=== PATIENT | female | born 1985 | race Caucasian/White ===

== ENCOUNTER → 2018-09-25 | Outpatient (CLI) | payer BC, SELFPAY ==
[2018-09-25 10:01] VITALS: BMI 25.0
[2018-09-25 14:16] LABS: Mucous, Urine 0 SEEN /hpf (<or=2+)
[2018-09-25 14:40] LABS: Color, Urine Yellow (Yellow); Glucose, Dipstick Normal (Normal); Ketone-Dipstick Negative (Negative); Leukocyte Esterase-Dipstick 500 /ul (Negative); Nitrite-Dipstick Negative (Negative); Occult Blood-Urine 150 /ul (Negative); Protein-Dipstick 30 mg/dl (Negative); Urine Bilirubin Dipstick Negative (Negative); Urine Clarity Cloudy (Clear); Urine Urobilinogen Normal (Normal); Urine pH 6.5 (5.0 - 8.0)
[2018-09-25 14:46] LABS: Squamous Epithelial Cells - UA 0-5 SEEN /hpf (5-10); White Blood Cells >100 SEEN /hpf (0-5)
[2018-09-25 14:50] LABS: Bacteria 1+ /hpf (None Seen)
[2018-09-25 14:52] LABS: Transitional Epithelial - Ur 0-5 SEEN /hpf (0-5)
[2018-09-25 14:53] LABS: Red Blood Cells-Urine 10-25 SEEN /hpf (0-5)
== END | disposition home or self-care (01) ==
PROVIDERS: Family Provider Family Medicine; PCP Family Medicine; Visit Provider Physician Assistant Medical
DX: R30.0 Dysuria (principal)
CPT/HCPCS: 81001; 87077; 87086; 87088; 87186

== ENCOUNTER → 2019-01-06 | Outpatient (CLI) | payer BC, SELFPAY ==
[2019-01-06 10:40] VITALS: BMI 25.0
[2019-01-06 12:18] LABS: HIV - WCH Non-Reactive (Nonreactive)
[2019-01-07 01:39] LABS: Rapid Plasmin Reagin (RPR) NONREACTIVE (NONREACTIVE)
[2019-01-08 03:06] LABS: HCV Quant. RNA PCR HCV Not Detected IU/mL (.)
[2019-01-10 13:46] LABS: HSV 1 IgG < 0.91 index (0.00-0.90); HSV 2 IgG < 0.91 index (0.00-0.90)
== END | disposition home or self-care (01) ==
LOC: PAVLAB 10:54
PROVIDERS: Family Provider Family Medicine; PCP Family Medicine; Referring Provider Nurse Practitioner Women's Health; Visit Provider Nurse Practitioner Women's Health
DX: Z11.3 Encounter for screening for infections with a predominantly sexual mode of transmission (principal)
CPT/HCPCS: 36415; 86592; 86695; 86696; 86703; 87522

== ENCOUNTER → 2019-01-10 | Outpatient (CLI) | payer BC, SELFPAY ==
[2019-01-10 16:33] VITALS: BMI 25.0
== END | disposition home or self-care (01) ==
LOC: LABSPEC 01-11 10:50
PROVIDERS: Family Provider Family Medicine; PCP Family Medicine; Referring Provider Physician Assistant; Visit Provider Physician Assistant
DX: J02.9 Acute pharyngitis, unspecified (principal)
CPT/HCPCS: 87081

== ENCOUNTER → 2019-01-19 | Outpatient (CLI) | payer BC, SELFPAY ==
[2019-01-19 08:57] VITALS: BMI 25.0
[2019-01-19 14:17] LABS: Chlamydia Trachomatis by PCR Negative (Negative); Neisserai gonorrhoeae by PCR Negative (Negative); Probe Check PASS; Sample Adequacy Control PASS; Specimen Processing Control PASS
== END | disposition home or self-care (01) ==
LOC: LABSPEC 12:02
PROVIDERS: Nurse Practitioner Women's Health; Family Provider Family Medicine; PCP Family Medicine; Visit Provider Obstetrics & Gynecology
DX: Z11.3 Encounter for screening for infections with a predominantly sexual mode of transmission (principal)
CPT/HCPCS: 87491; 87591

== ENCOUNTER → 2019-02-08 15:27 | Outpatient (CLI) | payer BC, SELFPAY ==
[2019-02-08 09:17] VITALS: BMI 25.0
[2019-02-08 17:59] LABS: Chlamydia Trachomatis by PCR Negative (Negative); Neisserai gonorrhoeae by PCR Negative (Negative); Probe Check PASS; Sample Adequacy Control PASS; Specimen Processing Control PASS
== END ==
PROVIDERS: Family Provider Family Medicine; PCP Family Medicine; Referring Provider Nurse Practitioner Women's Health; Visit Provider Nurse Practitioner Women's Health
DX: Z11.3 Encounter for screening for infections with a predominantly sexual mode of transmission (principal)
CPT/HCPCS: 87491; 87591

== ENCOUNTER → 2019-05-04 15:18 | Outpatient (CLI) | payer BC, MEDICAID, SELFPAY ==
[2019-05-04 09:11] VITALS: BMI 25.0
[2019-05-04 17:51] LABS: Chlamydia Trachomatis by PCR Negative (Negative); Neisserai gonorrhoeae by PCR Negative (Negative); Probe Check PASS; Sample Adequacy Control PASS; Specimen Processing Control PASS
== END ==
PROVIDERS: Family Provider Family Medicine; PCP Family Medicine; Visit Provider Nurse Practitioner Women's Health
DX: N89.8 Other specified noninflammatory disorders of vagina (principal)
CPT/HCPCS: 87491; 87591

== ENCOUNTER 2019-05-13 16:54 | Emergency (ER) | payer BC, MEDICAID, SELFPAY ==
[2019-05-04 09:11] VITALS: BMI 25.0
[2019-05-13 16:54] VITALS: BP 110/82; PULSE 96; RESP 20; TEMP 36.8; O2SAT 100; BMI 24.2
--- NOTE | 2019-05-13 17:33 | EKG12_ITS ---
Test Reason : CP Blood Pressure : / mmHG Vent. Rate : 099 BPM Atrial Rate : 099 BPM P-R Int : 138 ms QRS Dur : 070 ms QT Int : 344 ms P-R-T Axes : 070 035 041 degrees QTc Int : 441 ms Normal sinus rhythm Normal ECG Confirmed by MALVIN FARMER, ALEXA ([id number]), metropolitan editor JOHN SPIVEY ([id number]) on 05/17/2019 9:54:00 AM Referred By: JOSLYN Confirmed By:ALEXA COOMBS MD
--- NOTE | 2019-05-13 17:37 | RAD_ITS ---
STUDY: X-RAY CHEST REASON FOR EXAM: Female, 33 years old. Chest / abd pain that started at 4pm. Radiation to bl arms and neck TECHNIQUE: Single AP portable upright view of the chest. COMPARISON: None. FINDINGS: The lungs are clear and expanded. There is no demonstrated pleural abnormality. Normal size heart. Normal mediastinum and pancho. Normal visualized pulmonary arteries. Normal visualized aortic arch and descending thoracic aorta. Normal visualized thoracic spine. Normal visualized ribs, clavicles, and shoulders. There is no demonstrated abnormality of the visualized soft tissue structures of the upper abdomen. RAD/Chest 1 View (Portable) IMPRESSION: Normal x-ray examination of the chest. Electronically Signed: Nacho Hunt MD at 18:07 EST , Service support ,
[2019-05-13 17:41] VITALS: O2SAT 100
[2019-05-13] MEDS: Aspirin 81 MG TAB.CHEW 324 MG PO (17:45)
[2019-05-13 17:46] LABS: Absolute Neutrophil Count 2.5 X10^3/uL (2.0-7.7); Basophil# 0.02 X10^3/uL; Basophil% 0.4 % (0-1); Eosinophil# 0.26 X10^3/uL; Eosinophils% 4.8 % (0-5); Hematocrit 37.1 % (37-47); Hemoglobin 12.5 g/dL (12.0-15.0); Lymphocyte % 40.4 % (19-41); Mean Corp Hgb Conc 33.7 g/dL (32-36); Mean Corpuscular Hgb 32.8 pg (27.0-32.0); Mean Corpuscular Volume 97.4 fL (81-99); Mean Platelet Vol. 10.4 fl (6.2-12.0); Monocyte# 0.48 X10^3/uL; Monocyte% 8.8 % (0-10); NRBC Flagged by Analyzer 0 % (0-5); Neutrophil # 2.47 X10^3/uL (2.7-7.7); Neutrophil % 45.2 % (47-70); Platelet Count 274 K/mm3 (150-450); RBC Distribution Width CV 12.2 % (11.6-14.6); RBC Distribution Width SD 43.8 fl (35.1-43.9); Red Blood Count 3.81 M/mm3 (4.2-5.4); White Blood Count 5.5 K/mm3 (4.4-11.0)
[2019-05-13 17:55] LABS: Anion Gap 6 (5-15); BUN 14 mg/dL (7-18); BUN/Creat Ratio 14.7 RATIO (10-20); Calcium,Total 8.6 mg/dL (8.5-10.1); Chloride 108 mmol/L (98-107); Creatinine, Serum 0.95 mg/dL (0.55-1.02); EST Glomerular Filtration Rate 71 mL/min (>60); Est Glom Filt Rate - Afr Amer 86 mL/min (>60); Estimated Creatinine Clearance 59.37 ml/min; Glucose 92 mg/dL (74-106); Lipase 223 U/L (73-393); Potassium 3.6 mmol/L (3.5-5.1); Sodium Level 142 mmol/L (136-145)
[2019-05-13 17:57] VITALS: BP 108/57; PULSE 84; RESP 14; O2SAT 100
[2019-05-13 18:03] VITALS: BP 110/66; PULSE 83; RESP 14; O2SAT 100
[2019-05-13 18:10] LABS: D-Dimer Quantitative (DVT/PE) 0.29 FEU/ug/m (0.27-0.49)
--- NOTE | 2019-05-13 18:53 | ED.VISSUMM ---
- ER Visit Summary Date of Service: 05/13/19 Chief Complaint: [Chest pain] History of Present Illness: The patient is a 33 F [presents to the emergency department chest discomfort that started around 4 PM. Patient states that she woke up around 4 PM because she works third shift and had a lot of discomfort in the epigastric region and lower part over chest. Described as a tightness and a fullness. Patient felt like she could not breathe with it. She has had this multiple times in the past. Patient states the pain is currently resolved but was more severe earlier. Patient denies recent illness. She is currently on the Depakote shot but she does not think she is she is not sure when her last menstrual period was. She does have a history of some anemia. Patient does have history of anxiety. Patient has had prior D&C. Denies recent travel or surgery.] There is no family history of heart disease. Physical Examination: [HEENT-PERRLA, EOMI. Cranial nerves II through XII grossly intact. TMs clear. Mucous membranes moist. No adenopathy. Cardiovascular-regular rate and rhythm without murmur or ectopy Lungs-clear to auscultation, chest wall stable without crepitus or subcu emphysema Abdomen-normoactive bowel sounds, soft, nontender, no rebound or rigidity, no peritoneal signs. Extremities-intact ?4, normal range of motion, normal pulses, atraumatic] Test Results: [EKG obtained on arrival shows sinus rhythm with a ventricular rate of 99 bpm with no acute ST segment changes. CBC with differential is normal. Chemistries normal. Troponin less than 0.015. Lipase was 223. D-dimer was normal 0.29. Chest x-ray was normal.] Emergency Department Course and Treatment: [Placed on a surveillance system monitor on arrival to the emergency department] Treatment Plan: [Follow-up with her primary care physician in 3 to 5 days. I do not feel her chest pain is cardiac in nature. It is possible she may be having esophageal spasm or GERD potentially. She really only has 1 risk factor for heart disease and that is her smoking history.] Disposition: [Discharged home in stable condition. Impression: [Chest pain-etiology uncertain] This note was generated with [employer] software. It may contain incorrect words, spelling, and punctuation that were not noted in review of the chart prior to signing ED Disposition - Plan for ED Patient: Referrals: Michel Naqvi MD [Primary Care Provider] -
--- NOTE | 2019-05-13 18:55 | ED.DEP ---
ED Disposition - Plan for ED Patient: Instructions: CHEST PAIN, Uncertain Cause Referrals: Michel Naqvi MD [Primary Care Provider] - 3-5 Days
[2019-05-13 19:03] VITALS: BP 108/73; PULSE 72; RESP 18; O2SAT 98
--- NOTE | 2019-05-13 19:03 | ED.RN ---
IV DC'ED, CATHETER INTACT, SMALL GAUZE DRESSING PLACED. DISCHARGE INSTRUCTIONS GIVEN TO AND REVIEWED WITH PATIENT, PATIENT DENIES QUESTIONS OR CONCERNS AND VOICES UNDERSTANDING OF DISCHARGE INSTRUCTIONS. PT AMBULATES OUT OF ROOM WITHOUT DIFFICULTY.
== END 2019-05-13 19:04 | disposition home or self-care (01) ==
LOC: ED 17:49
PROVIDERS: Emergency Provider Emergency Medicine; Family Provider Family Medicine; PCP Family Medicine
DX: R07.89 Other chest pain (principal); R10.13 Epigastric pain; Z72.0 Tobacco use; Z79.899 Other long term (current) drug therapy; Z86.2 Personal history of diseases of the blood and blood-forming organs and certain disorders involving the immune mechanism
CPT/HCPCS: 71045; 80048; 83690; 84484; 85025; 85379; 93005; 99285

== ENCOUNTER → 2020-02-21 13:26 | Outpatient (CLI) | payer BC, MEDICAID, SELFPAY ==
[2020-02-21 12:50] VITALS: BMI 24.2
== END ==
PROVIDERS: PCP Family Medicine; Referring Provider Obstetrics & Gynecology; Visit Provider Obstetrics & Gynecology
DX: N64.3 Galactorrhea not associated with childbirth (principal)
CPT/HCPCS: 36415; 84146

== ENCOUNTER → 2020-02-24 09:22 | Outpatient (CLI) | payer BC, MEDICAID, SELFPAY ==
[2020-02-21 12:50] VITALS: BMI 24.2
--- NOTE | 2020-02-24 09:30 | BI_ITS ---
MAMMOGRAPHY - BILATERAL DIAGNOSTIC REASON FOR EXAM: Female, 34 years old. Right breast discharge. PERTINENT HISTORY: Aunt with breast cancer. TECHNIQUE: Digital bilateral breast rosita (3D mammographic acquisition) in the CC and MLO projections. 2-D mediolateral oblique (MLO) and craniocaudad (CC) views of both breasts were obtained. CAD: Full Field Digital Mammography with Computer Added Detection was performed. COMPARISON: No comparison mammograms available at this time. If any prior films become available, an addendum to this report can be generated. FINDINGS: Breast Composition: The breasts are heterogeneously dense, which may obscure small masses. There is an 8.1 mm x 9 mm well-defined nodule in the retroareolar region of the right breast. Correlation with ultrasound is recommended. Small benign-appearing bilateral axillary lymph nodes. No other significant abnormalities are identified. BI/DIAG MAMM W/CAD, BILAT IMPRESSION: 8.1 mm x 9 mm well-defined nodule in the retroareolar region of the right breast. Correlation with ultrasound is recommended. ASSESSMENT CATEGORY: BIRADS Category 0: Incomplete. Need additional imaging evaluation. A letter regarding these results will be sent to the patient by the facility within 30 days. Approximately 10% of breast cancers are not detected by mammography. A normal mammogram should not delay biopsy of a clinically suspicious abnormality. Electronically Signed: Jordon Daniels, at 9:59 EDT , Service support ,
--- NOTE | 2020-02-24 09:30 | US_ITS ---
STUDY: ULTRASOUND BREAST - RIGHT REASON FOR EXAM: Female, 34 years old. Abnormal screening mammogram. TECHNIQUE: Axial and longitudinal images of the RIGHT breast were performed with a high resolution ultrasound transducer. # OF IMAGES: 41 COMPARISON: Comparison is made with prior mammogram dated 02/24/2020. FINDINGS: RIGHT Breast: There is a 5 mm x 6 mm x 3 mm cyst at 12 o''clock position of the breast at the sinus from nipple. Adjacent to this, is also evidence of a 4 mm x 4 mm x 2 mm cyst. There is a 6 mm x 7 mm x 3 mm cyst at the 6 o''clock position breast at 2 cm from the nipple. There is a 1.1 cm x 0.9 cm x 0.4 cm cyst with a septation at the 9 o''clock position breast at 3 cm from the nipple. US/Breast Limited Unilateral IMPRESSION: Multiple cysts as described. ASSESSMENT CATEGORY: BIRADS Category 2: Benign. A letter regarding these results will be sent to the patient by the facility within 30 days. Electronically Signed: Jordon Daniels, at 9:57 EDT , Service support ,
== END ==
PROVIDERS: PCP Family Medicine; Referring Provider Obstetrics & Gynecology; Visit Provider Obstetrics & Gynecology
DX: N64.3 Galactorrhea not associated with childbirth (principal); N63.41 Unspecified lump in right breast, subareolar; Z80.3 Family history of malignant neoplasm of breast
CPT/HCPCS: 76642; 77066

== ENCOUNTER → 2021-01-22 16:01 | Outpatient (CLI) | payer MEDICAID, SELFPAY ==
[2021-01-24 20:08] LABS: Covid Inpatient test code BILL Performed (.)
== END ==
PROVIDERS: PCP Family Medicine; Referring Provider Physician Assistant Surgical; Visit Provider Physician Assistant Surgical
DX: R51.9 Headache, unspecified (principal)
CPT/HCPCS: 87635; U0005; U0003

== ENCOUNTER 2021-01-28 09:09 | Emergency (ER) | payer MEDICAID, SELFPAY ==
[2021-01-28 09:10] VITALS: BP 111/73; PULSE 114; RESP 18; TEMP 36.9; O2SAT 93; BMI 32.9
--- NOTE | 2021-01-28 09:22 | EDS_ITS ---
HPI History of Present Illness Chief Complaint: General Illness Informant: patient Onset/Context/Timing Onset: Weeks Context: Gradual Onset Current Severity: Mild Maximum Severity: Moderate Narrative Narrative: Patient presents due to concerns for dehydration. Patient developed symptoms of Covid 1 week ago today and tested positive on January 25. Patient has had problems with smell and taste. She is not been eating and drinking much. She complains of body aches, shortness of breath, headache. She is been having intermittent fevers for a week. Patient states she had decreased urine output has metallic taste in her mouth and therefore was concerned she may have dehydration. [facility] Medical History Abnormal mammogram Abnormal Pap smear of cervix Abnormal ultrasound of breast Acid reflux Anemia Depression Fatigue Galactorrhea History of ARDS Hx of blood clots Left wrist pain Left wrist sprain Home Medications lansoprazole 30 mg PO DAILY 05/13/19 [History Last Taken Unknown] Allergy/AdvReac Type Severity Reaction Status Date / Time No Known Allergies Allergy Verified 01/28/21 09:11 Family History Aunt Breast cancer Uncle CVA (cerebral vascular accident) Grandfather Liver disease CVA (cerebral vascular accident) Other Cancer Surgical History Hx of dilation and curettage hx of septic Status post colposcopy Social History Smoking Status: Former smoker alcohol intake: never substance use type: does not use caffeine: Yes what type of physical activity do you participate in: none seatbelt use: sometimes do you feel safe at home: Yes additional social history: Patient works at [employer] ED Constitutional Constitutional ED: Reports chills and fever(s) Eyes Eyes: Denies change in vision ENT ENT ED: Denies ear pain or sore throat Cardiovascular Cardiovascular: Denies chest pain or palpitations Respiratory/Chest Respiratory/Chest: Reports dyspnea; Denies cough Gastrointestinal Gastrointestinal: Denies abdominal pain, diarrhea or vomiting Genitourinary Genitourinary ED: Denies dysuria Musculoskeletal Musculoskeletal: Reports myalgias Integumentary Denies rash Neurologic Neurologic: Reports headache(s) Psychiatric Psychiatric: Denies anxiety or depression Endocrine Endocrinology: Denies polydipsia or polyuria Allergic/Immunologic Allergic/Immunologic ED: Denies urticaria EXAM Physical Exam Const Vital Signs: 01/28/21 09:10 01/28/21 10:08 Temperature 98.5 F Temperature Source Temporal Pulse Rate 114 H Respiratory Rate 18 Respiratory Effort Normal Non-Labored Respiratory Pattern Normal Blood Pressure 111/73 Blood Pressure Mean 85 Pulse Ox 93 Oxygen Delivery Method Room Air Positive well nourished and well developed General Appearance ED: well developed Eyes PERRL and EOMs intact bilaterally Neck supple Chest Wall inspection of chest normal and palpation of chest normal Resp normal respiratory effort and clear to auscultation bilaterally Cardio regular rate and regular rhythm GI non-tender Auscultation: hypoactive bowel sounds Palpation: soft Extremity normal to inspection Neuro oriented x3 Sensorium / Orientation: alert Skin no rashes or lesions noted MDM MDM MDM Narrative Medical decision making narrative: Blood work and chest x-ray obtained. Patient is given a 500 cc IV fluid bolus. Lab Data Attestation: I reviewed the patient's lab results. Labs: Laboratory Results - last 24 hr 01/28/21 01/28/21 10:00 10:00 WBC 2.5 L RBC 4.00 L Hgb 12.8 Hct 37.3 MCV 93.3 MCH 32.0 MCHC 34.3 RDW Std Deviation 42.2 RDW Coeff of [place] 12.3 Plt Count 116 L MPV 10.3 Immature Gran % (Auto) 0.000 Neut % (Auto) 65.6 Lymph % (Auto) 23.9 [place] % (Auto) 10.5 H Eos % (Auto) 0.0 Baso % (Auto) 0.0 Absolute Neuts (auto) 1.6 L Absolute Lymphs (auto) 0.59 L Nucleated RBC % 0 Differential Comment COMMENT Diff Path Review May foll Reactive Lymphocytes RARE Sodium 138 Potassium 3.8 Chloride 105 Carbon Dioxide 26.0 Anion Gap 7 BUN 13 Creatinine 0.77 Estim Creat Clear Calc 116.76 Est GFR (MDRD) Af Amer 108 Est GFR (MDRD) Non-Af 89 BUN/Creatinine Ratio 16.9 Glucose 101 Calcium 8.3 L Radiography Chest X-Ray - ED: 1 View, Read by ED Physician, Normal, Heart, Lungs and Mediastinum Diagnostic Testing: Radiology Impression Chest X-Ray 01/28/21 10:16 IMPRESSION: Normal x-ray examination of the chest. Electronically Signed: Jordon Daniels MD at 10:34 EDT , Service support , Treatment and Re-Evaluation Comments:: On repeat evaluation patient resting comfortably. Test results discussed with her. Blood work is unremarkable. She has leukopenia which is expected with her viral infection. Chest x-ray is clear with no evidence of infiltrate. Patient will continue supportive care at home and return instructions are provided. Discharge Plan Triage Chief Complaint: General Illness ED Provider: Ness Garcia Dx/Rx/DC Orders Clinical Impression: COVID-19 Instructions: Coronavirus Disease 2019 (COVID-19): Overview, Coronavirus Disease 2019 (COVID-19): Caring for Yourself or Others Prescriptions: No Action lansoprazole 30 MG capsule 30 mg PO DAILY RF: 0 Primary Care Provider: Michel Naqvi Referrals: Michel Naqvi MD [Primary Care Provider] - 1-2 Weeks Disposition Disposition: Home, Self Care
[2021-01-28 10:07] LABS: Absolute Lymphocyte Count 0.59 X10^3/uL (0.83-4.51); Absolute Neutrophil Count 1.6 X10^3/uL (2.0-7.7); Hematocrit 37.3 % (37-47); Hemoglobin 12.8 g/dL (12.0-15.0); Lymphocyte # 0.59 X10^3/ul (0.83-4.51); Lymphocyte % 23.9 % (19-41); Mean Corp Hgb Conc 34.3 g/dL (32-36); Mean Corpuscular Volume 93.3 fL (81-99); Mean Platelet Vol. 10.3 fl (6.2-12.0); Monocyte# 0.26 X10^3/uL; Monocyte% 10.5 % (0-10); NRBC Flagged by Analyzer 0 % (0-5); Neutrophil # 1.62 X10^3/uL (2.7-7.7); Neutrophil % 65.6 % (47-70); POSITIVE DIFFERENTIAL YES; POSITIVE MORPHOLOGY YES; Platelet Count 116 K/mm3 (150-450); RBC Distribution Width CV 12.3 % (11.6-14.6); RBC Distribution Width SD 42.2 fl (35.1-43.9); White Blood Count 2.5 K/mm3 (4.4-11.0)
[2021-01-28 10:09] LABS: Differential Indicated SCAN CRITERIA MET
--- NOTE | 2021-01-28 10:16 | RAD_ITS ---
STUDY: X-RAY CHEST REASON FOR EXAM: Female, 35 years old. Sob TECHNIQUE: Single AP portable view of the chest. COMPARISON: Comparison is made with prior study dated 05/13/2019. FINDINGS: The lungs are clear and expanded. There is no demonstrated pleural abnormality. Normal size heart. Normal mediastinum and pancho. Normal visualized pulmonary arteries. Normal visualized aortic arch and descending thoracic aorta. Normal visualized thoracic spine. Normal visualized ribs, clavicles, and shoulders. There is no demonstrated abnormality of the visualized soft tissue structures of the upper abdomen. RAD/Chest 1 View (Portable) IMPRESSION: Normal x-ray examination of the chest. Electronically Signed: Jordon Daniels MD at 10:34 EDT , Service support ,
[2021-01-28 10:30] LABS: Anion Gap 7 (5-15); BUN 13 mg/dL (7-18); BUN/Creat Ratio 16.9 RATIO (10-20); Calcium,Total 8.3 mg/dL (8.5-10.1); Chloride 105 mmol/L (98-107); Creatinine, Serum 0.77 mg/dL (0.55-1.02); EST Glomerular Filtration Rate 89 mL/min (>60); Est Glom Filt Rate - Afr Amer 108 mL/min (>60); Estimated Creatinine Clearance 116.76 ml/min; Glucose 101 mg/dL (74-106); Potassium 3.8 mmol/L (3.5-5.1); Sodium Level 138 mmol/L (136-145)
[2021-01-28 10:49] LABS: Reactive Lymphocyte RARE
[2021-01-29 12:59] LABS: Pathologist Review Reviewed
== END 2021-01-28 11:24 | disposition home or self-care (01) ==
PROVIDERS: Emergency Provider Emergency Medicine; PCP Family Medicine
DX: U07.1 COVID-19 (principal); K21.9 Gastro-esophageal reflux disease without esophagitis; Z79.899 Other long term (current) drug therapy; Z86.718 Personal history of other venous thrombosis and embolism; Z87.891 Personal history of nicotine dependence
CPT/HCPCS: 71045; 80048; 85025; 96360; 99283; J7040

== ENCOUNTER 2021-05-12 09:58 | Emergency (ER) | payer MEDICAID, SELFPAY ==
[2021-05-12 09:59] VITALS: BP 114/65; PULSE 81; RESP 14; TEMP 36.1; O2SAT 97; BMI 34.9
--- NOTE | 2021-05-12 10:05 | RAD_ITS ---
STUDY: X-RAY - LEFT ANKLE REASON FOR EXAM: Female, 35 years old. injury TECHNIQUE: 3 view(s) of the ankle. COMPARISON: None. FINDINGS: Normal visualized distal tibia and fibula. Normal medial and lateral malleoli. Normal tibiotalar articulation and ankle mortise. Normal visualized talus and calcaneus. The visualized subtalar, talonavicular, calcaneocuboid and tarsal articulations are normal. Lateral soft tissue swelling consistent with ligamentous injury. RAD/Ankle min 3 Views IMPRESSION: No acute fracture or dislocation. Lateral soft tissue swelling consistent with ligamentous injury. Electronically Signed: Rocky López MD at 11:02 EST Tel , Service support ,
--- NOTE | 2021-05-12 10:08 | RAD_ITS ---
STUDY: X-RAY - LEFT FOOT CLINICAL: Female, 35 years old. injury TECHNIQUE: 3 view(s) of the foot. COMPARISON: None. FINDINGS: Normal talus, calcaneus, and tarsal bones. Normal visualized subtalar, talonavicular, calcaneocuboid, tarsal and tarsometatarsal articulations. Normal metatarsi. Normal metatarsophalangeal joint of the great toe. Normal tibial and fibular sesamoid bones. Normal interphalangeal joint of the great toe. Normal phalanges of the great toe. Normal second through fifth metatarsophalangeal joints. Normal interphalangeal joints and phalanges of the lesser toes. The soft tissue structures are unremarkable. RAD/Foot min 3 Views IMPRESSION: Normal x-ray examination of the foot. Electronically Signed: Rocky López MD at 11:03 EST Tel , Service support ,
--- NOTE | 2021-05-12 10:09 | EDS_ITS ---
HPI History of Present Illness Chief Complaint: Lower Extremity Injury Informant: patient Narrative Narrative: 35-year-old female states that she missed a step yesterday resulting in an inversion injury to the left foot and ankle. She notes swelling pain and bruising. She denies any other injuries. [facility] Medical History Abnormal mammogram Abnormal Pap smear of cervix Abnormal ultrasound of breast Acid reflux Anemia Depression Fatigue Galactorrhea History of ARDS Hx of blood clots Left wrist pain Left wrist sprain Home Medications lansoprazole 30 mg PO DAILY 05/13/19 [History Last Taken Unknown] Allergy/AdvReac Type Severity Reaction Status Date / Time No Known Allergies Allergy Verified 05/12/21 09:58 Family History Aunt Breast cancer Uncle CVA (cerebral vascular accident) Grandfather Liver disease CVA (cerebral vascular accident) Other Cancer Surgical History Hx of dilation and curettage hx of septic Status post colposcopy Social History Smoking Status: Former smoker alcohol intake: never substance use type: does not use caffeine: Yes what type of physical activity do you participate in: none seatbelt use: sometimes do you feel safe at home: Yes additional social history: Patient works at [employer] ED Constitutional Constitutional ED: Denies chills, fever(s) or weight loss Eyes Eyes: Denies change in vision or diplopia ENT ENT ED: Denies ear pain, rhinorrhea or sore throat Cardiovascular Cardiovascular: Denies chest pain, orthopnea, palpitations or racing heartbeat Respiratory/Chest Respiratory/Chest: Denies cough, dyspnea or orthopnea Gastrointestinal Gastrointestinal: Denies abdominal pain, diarrhea, nausea or vomiting Genitourinary Genitourinary ED: Denies dysuria, hematuria or urinary frequency Musculoskeletal Musculoskeletal: Reports other Details: See history of present illness ; Denies arthralgias or myalgias Integumentary Denies abscess or rash Neurologic Neurologic: Denies headache(s) or weakness Psychiatric Psychiatric: Denies anxiety, depression, suicidal ideation or suicidal thoughts Endocrine Endocrinology: Denies polydipsia, polyphagia or polyuria Allergic/Immunologic Allergic/Immunologic ED: Denies mouth swelling, tongue swelling or urticaria EXAM Physical Exam Const Vital Signs: 05/12/21 09:59 Temperature 97 F L Temperature Source Temporal Pulse Rate 81 Respiratory Rate 14 Blood Pressure 114/65 Blood Pressure Mean 81 Pulse Ox 97 Oxygen Delivery Method Room Air Positive well nourished and well developed General Appearance ED: well developed HEENT Reports normocephalic, head/scalp atraumatic and moist mucous membranes normocephalic and atraumatic Eyes PERRL and EOMs intact bilaterally Eyes Narrative: EOMI Neck full ROM, no lymphadenopathy, supple and no JVD Resp normal respiratory effort and clear to auscultation bilaterally Cardio regular rate, regular rhythm and no murmurs GI normal to inspection, nondistended, normoactive bowel sounds and non-tender Auscultation: normoactive bowel sounds Palpation: soft Back/Spine no CVA tenderness and normal ROM Extremity Extremity Narrative: There is swelling over the medial and lateral malleolus. There is ecchymosis noted over the lateral malleolus extending down onto the midfoot and the lateral aspect of the dorsum of the foot. There is no fibular head tenderness or fifth metatarsal pain. The Achilles is intact. NVI distally General Extremety ED: Negative for edema General Extremity: Negative for edema Neuro oriented x3 and CN's II-XII intact bilaterally Sensorium / Orientation: alert Motor Exam: strength 5/5 throughout Psych mental status grossly normal Mood & Affect: Negative for depressed or tearful Skin no rashes or lesions noted and no wounds MDM MDM MDM Narrative Medical decision making narrative: My interpretation of the plain films of the left foot and ankle are no acute fracture. Patiently placed in an air splint given crutches. Follow-up as needed return if worsening or concerns Radiography Diagnostic Testing: Clinical Impression(s) from Imaging Studies Ankle X-Ray 05/12/21 10:05 IMPRESSION: No acute fracture or dislocation. Lateral soft tissue swelling consistent with ligamentous injury. Electronically Signed: Rocky López MD at 11:02 EST Tel , Service support , Foot X-Ray 05/12/21 10:08 IMPRESSION: Normal x-ray examination of the foot. Electronically Signed: Rocky López MD at 11:03 EST Tel , Service support , Discharge Plan Triage Chief Complaint: Lower Extremity Injury ED Provider: Malik Bailey Dx/Rx/DC Orders Clinical Impression: Left ankle sprain Instructions: ED Ankle Sprain (Adult) Prescriptions: No Action lansoprazole 30 MG capsule 30 mg PO DAILY RF: 0 Primary Care Provider: Michel Naqvi Referrals: Michel Naqvi MD [Primary Care Provider] - As Needed Disposition Disposition: Home, Self Care
[2021-05-12 11:31] VITALS: PULSE 70; RESP 18
== END 2021-05-12 11:31 | disposition home or self-care (01) ==
PROVIDERS: Emergency Provider Emergency Medicine; PCP Family Medicine
DX: S93.402A Sprain of unspecified ligament of left ankle, initial encounter (principal); X50.1XXA Overexertion from prolonged static or awkward postures, initial encounter; Y93.9 Activity, unspecified; Y92.9 Unspecified place or not applicable; Y99.9 Unspecified external cause status; K21.9 Gastro-esophageal reflux disease without esophagitis; Z79.899 Other long term (current) drug therapy; Z86.718 Personal history of other venous thrombosis and embolism; Z87.891 Personal history of nicotine dependence
CPT/HCPCS: 73610; 73630; 99283

== ENCOUNTER → 2022-01-03 | Outpatient (CLI) | payer MEDICAID, SELFPAY ==
[2022-01-03 15:07] LABS: Absolute Lymphocyte Count 1.55 X10^3/uL (0.83-4.51); Absolute Neutrophil Count 4.4 X10^3/uL (2.0-7.7); Basophil# 0.02 X10^3/uL; Basophil% 0.3 % (0-1); Eosinophil# 0.15 X10^3/uL; Eosinophils% 2.3 % (0-5); Hematocrit 38.1 % (37-47); Hemoglobin 12.7 g/dL (12.0-15.0); Lymphocyte # 1.55 X10^3/ul (0.83-4.51); Lymphocyte % 23.4 % (19-41); Mean Corp Hgb Conc 33.3 g/dL (32-36); Mean Corpuscular Hgb 31.9 pg (27.0-32.0); Mean Corpuscular Volume 95.7 fL (81-99); Monocyte# 0.51 X10^3/uL; Monocyte% 7.7 % (0-10); NRBC Flagged by Analyzer 0 % (0-5); Neutrophil # 4.38 X10^3/uL (2.7-7.7); Neutrophil % 66.1 % (47-70); Platelet Count 361 K/mm3 (150-450); RBC Distribution Width CV 12.5 % (11.6-14.6); RBC Distribution Width SD 44.1 fl (35.1-43.9); Red Blood Count 3.98 M/mm3 (4.2-5.4); White Blood Count 6.6 K/mm3 (4.4-11.0)
[2022-01-03 15:47] LABS: ALB/GLOB Ratio 0.9 RATIO (0.9-2.4); AST(SGOT) 28 U/L (15-37); Alanine Aminotransfer ALT/SGPT 57 U/L (13-56); Albumin, Serum 3.4 g/dL (3.2-5.0); Alkaline Phosphatase 74 U/L (45-117); Anion Gap 5 (5-15); BUN 11 mg/dL (7-18); BUN/Creat Ratio 14.8 RATIO (10-20); Calcium,Total 8.6 mg/dL (8.5-10.1); Chloride 105 mmol/L (98-107); Creatinine, Serum 0.74 mg/dL (0.55-1.02); EST Glomerular Filtration Rate 93 mL/min (>60); Est Glom Filt Rate - Afr Amer 112 mL/min (>60); Globulin 3.9 g/dL (2.2-4.2); Glucose 91 mg/dL (74-106); Potassium 3.9 mmol/L (3.5-5.1); Protein, Total 7.3 g/dL (6.4-8.2); Sodium Level 138 mmol/L (136-145); T4 Free Direct 0.83 ng/dL (0.76-1.46); Thyroid Stim Hormone (TSH) 1.68 uIU/mL (0.358-3.74)
[2022-01-05 15:16] LABS: Thyroid Peroxidase AB < 8 IU/mL (0-34)
== END | disposition home or self-care (01) ==
LOC: MTLAB 14:09
PROVIDERS: PCP Internal Medicine; Referring Provider Internal Medicine; Visit Provider Internal Medicine
DX: E66.9 Obesity, unspecified (principal); Z13.29 Encounter for screening for other suspected endocrine disorder
CPT/HCPCS: 36415; 80053; 84439; 84443; 85025; 86376

== ENCOUNTER → 2022-11-03 | Outpatient (CLI) | payer MEDICAID, SELFPAY ==
[2022-11-03 11:59] LABS: Absolute Lymphocyte Count 1.07 X10^3/uL (0.83-4.51); Absolute Neutrophil Count 1.9 X10^3/uL (2.0-7.7); Basophil# 0.03 X10^3/uL; Basophil% 0.9 % (0-1); Eosinophil# 0.14 X10^3/uL; Eosinophils% 4.1 % (0-5); Hematocrit 37.5 % (37-47); Hemoglobin 12.4 g/dL (12.0-15.0); Lymphocyte # 1.07 X10^3/ul (0.83-4.51); Lymphocyte % 31.2 % (19-41); Mean Corp Hgb Conc 33.1 g/dL (32-36); Mean Corpuscular Hgb 31.7 pg (27.0-32.0); Mean Corpuscular Volume 95.9 fL (81-99); Mean Platelet Vol. 9.7 fl (6.2-12.0); Monocyte# 0.28 X10^3/uL; Monocyte% 8.2 % (0-10); NRBC Flagged by Analyzer 0 % (0-5); Neutrophil # 1.91 X10^3/uL (2.7-7.7); Neutrophil % 55.6 % (47-70); Platelet Count 327 K/mm3 (150-450); RBC Distribution Width SD 45.3 fl (35.1-43.9); Red Blood Count 3.91 M/mm3 (4.2-5.4); White Blood Count 3.4 K/mm3 (4.4-11.0)
[2022-11-03 12:42] LABS: Vitamin D,25 Hydroxy 33.7 ng/mL
[2022-11-03 12:46] LABS: ALB/GLOB Ratio 0.8 RATIO (0.9-2.4); AST(SGOT) 33 U/L (15-37); Alanine Aminotransfer ALT/SGPT 71 U/L (13-56); Albumin, Serum 3.4 g/dL (3.2-5.0); Alkaline Phosphatase 87 U/L (45-117); Anion Gap 6 (5-15); BUN 13 mg/dL (7-18); BUN/Creat Ratio 14.9 RATIO (10-20); Calcium,Total 9.1 mg/dL (8.5-10.1); Chloride 109 mmol/L (98-107); Cholesterol 214 mg/dL (200); Creatinine, Serum 0.87 mg/dL (0.55-1.02); EST Glomerular Filtration Rate 77 mL/min (>60); Est Glom Filt Rate - Afr Amer 93 mL/min (>60); Glucose 97 mg/dL (74-106); High Density Lipoprotein 59 mg/dL; Protein, Total 7.4 g/dL (6.4-8.2); Sodium Level 142 mmol/L (136-145); Thyroid Stim Hormone (TSH) 1.78 uIU/mL (0.358-3.74); Triglycerides 67 mg/dL; Very Low Density Lipoprotein 13 mg/dL (5-40)
[2022-11-03 14:01] LABS: Hemoglobin A1c 5.1 % (3.8-5.6)
[2022-11-10 16:09] LABS: HPV APTIMA, High Risk Negative (Negative)
== END | disposition home or self-care (01) ==
PROVIDERS: PCP Internal Medicine; Referring Provider Nurse Practitioner Women's Health; Visit Provider Nurse Practitioner Women's Health
DX: E66.9 Obesity, unspecified (principal); R53.83 Other fatigue; Z12.4 Encounter for screening for malignant neoplasm of cervix
CPT/HCPCS: 36415; 80053; 80061; 82306; 83036; 84443; 85025; 87624; 88175; G0145

== ENCOUNTER 2023-02-12 16:45 | Outpatient (RCR) | payer MEDICAID, SELFPAY | END 2023-02-14 23:59 | LOC: NS 16:45 | PROVIDERS: PCP Internal Medicine; Referring Provider Obstetrics & Gynecology; Visit Provider Obstetrics & Gynecology | DX: Z71.3 Dietary counseling and surveillance (principal); E66.9 Obesity, unspecified | CPT/HCPCS: 97802; 97803 ==

== ENCOUNTER 2023-03-16 16:40 | Outpatient (RCR) | payer OTHER, SELFPAY | END 2023-03-17 23:59 | LOC: NS 16:40 | PROVIDERS: PCP Physician Assistant; Referring Provider Obstetrics & Gynecology; Visit Provider Obstetrics & Gynecology | DX: Z71.3 Dietary counseling and surveillance (principal); E66.9 Obesity, unspecified; R74.8 Abnormal levels of other serum enzymes | CPT/HCPCS: 97803 ==

== ENCOUNTER → 2023-05-13 | Outpatient (CLI) | payer OTHER, SELFPAY ==
--- NOTE | 2023-05-13 11:22 | RAD_ITS ---
STUDY: X-RAY - LUMBAR SPINE REASON FOR EXAM: Female, 37 years old. LUMBAR BACK PAIN TECHNIQUE: 5 view(s) of the lumbar spine were obtained. COMPARISON: 2015 FINDINGS: Normal lumbar lordosis. There is no substantial scoliosis. There is a normal alignment of the vertebrae. Normal vertebral bodies and endplates. Normal disc space heights. There is no demonstrated fracture. There is no demonstrated spondylolysis of the pars interarticulares. The soft tissue structures are unremarkable. RAD/L/S Spine Min 4 Views IMPRESSION: Normal x-ray examination of the lumbar spine. Electronically Signed: Nacho Dailey MD at 11:40 EST ,
== END | disposition home or self-care (01) ==
LOC: MTRAD 11:20
PROVIDERS: PCP Nurse Practitioner Family; Referring Provider Nurse Practitioner Family; Visit Provider Nurse Practitioner Family
DX: M54.50 Low back pain, unspecified (principal)
CPT/HCPCS: 72110

== ENCOUNTER → 2024-03-02 | Outpatient (CLI) | payer OTHER, SELFPAY ==
--- NOTE | 2024-03-02 14:02 | BI_ITS ---
MAMMOGRAPHY - BILATERAL DIAGNOSTIC REASON FOR EXAM: Female, 38 years old. NEW MASS RT AXILLA PERTINENT HISTORY: Non-contributory. TECHNIQUE: Digital examination. Mediolateral oblique (MLO) and craniocaudad (CC) views of both breasts were obtained. CAD: CAD was performed on this study. COMPARISON: None. FINDINGS: Breast Composition: There are scattered areas of fibroglandular density. There are no dominant masses or suspicious calcifications. No other significant abnormalities are identified. BI/DIAG MAMM W/CAD, BILAT IMPRESSION: Stable bilateral diagnostic mammogram. Ultrasound of the palpable abnormality in the axillary tail of right breast will be obtained. ASSESSMENT CATEGORY: BIRADS Category 0: Incomplete. Need additional imaging evaluation. A letter regarding these results will be sent to the patient by the facility within 30 days. FOLLOW UP RECOMMENDATION: Ultrasound Recommended. (I) Approximately 10% of breast cancers are not detected by mammography. A normal mammogram should not delay biopsy of a clinically suspicious abnormality. Electronically Signed: Rocky López MD at 9:18 EDT ,
--- NOTE | 2024-03-02 14:03 | US_ITS ---
STUDY: ULTRASOUND BREAST - RIGHT REASON FOR EXAM: Female, 38 years old. Palpable mass TECHNIQUE: Axial and longitudinal images of the RIGHT breast were performed with a high resolution ultrasound transducer. # OF IMAGES: 30 COMPARISON: Diagnostic mammogram earlier today FINDINGS: RIGHT Breast: Homogeneous fatty background echotexture. Multiple longitudinal and transverse ultrasound images of the axillary tail the right breast do not demonstrate a discrete solid or cystic mass or lymphadenopathy. Some normal-sized axillary lymph nodes with normal morphology and echogenicity are noted.: US/Breast Limited Unilateral IMPRESSION: Normal diagnostic mammogram and right breast ultrasound. However, biopsy of any palpable abdomen should be performed if clinically indicated. ASSESSMENT CATEGORY: BIRADS Category 1: Negative. A letter regarding these results will be sent to the patient by the facility within 30 days. Electronically Signed: Rocky López MD at 12:05 EDT ,
== END | disposition home or self-care (01) ==
PROVIDERS: PCP Nurse Practitioner Family; Referring Provider Nurse Practitioner Family; Visit Provider Nurse Practitioner Family
DX: N63.31 Unspecified lump in axillary tail of the right breast (principal)
CPT/HCPCS: 76642; 77062; 77066; G0279